=== PATIENT | male | born 1970 | race Asian ===

== ENCOUNTER 2018-06-10 10:53 | Emergency (ER) | payer OTHER ==
[~2018-06-10] VITALS: Ht 162.6 cm; Wt 70.0 kg
[2018-06-10 11:30] VITALS: BP 141/90
[2018-06-10] MEDS ORDERED: IBUPROFEN 800MG TABLET PO ONE (14:15)
== END 2018-06-10 14:35 | disposition home or self-care (01) ==
LOC: ER 10:53
DX: J32.8 Other chronic sinusitis (principal); R51 Headache; F17.210 Nicotine dependence, cigarettes, uncomplicated
CPT/HCPCS: 99283